=== PATIENT | male | born 1980 | race Two or more races ===

== ENCOUNTER 2025-02-21 20:27 | Emergency (ER) | payer BC ==
[2025-02-21] MEDS: Lactated Ringers 1,000 ML IV ONE (22:51)
[2025-02-21] MEDS: Ketorolac 30 MG/ML SDV IVPUSH ONE (22:52)
[2025-02-21 22:57] LABS: BASOPHILS ABSOLUTE AUTO 0.04 K/uL (0.00-0.20); BASOPHILS PERCENT AUTO 0.5 % (0.0-1.0); EOSINOPHILS ABSOLUTE AUTO 0.02 K/uL (0.00-0.45); EOSINOPHILS PERCENT AUTO 0.3 % (0.0-6.0); IMMATURE GRAN ABSOLUTE AUTO 0.02 K/uL (0.00-0.05); IMMATURE GRAN PERCENT AUTO 0.3 % (0.0-0.4); LYMPHOCYTES ABSOLUTE AUTO 2.13 K/uL (1.00-4.80); LYMPHOCYTES PERCENT AUTO 28.5 % (24.0-44.0); MEAN PLATELET VOLUME 9.4 fL (9.4-12.4); MONOCYTES ABSOLUTE AUTO 0.60 K/uL (0.00-0.80); MONOCYTES PERCENT AUTO 8.0 % (0.0-8.0); NEUTROPHILS ABSOLUTE AUTO 4.67 K/uL (1.80-7.70); NEUTROPHILS PERCENT AUTO 62.4 % (41.0-71.0); NRBC ABSOLUTE 0.00 K/uL (0.00-0.02); NRBC PERCENT 0.0 /100WBC (0.0-0.2); PLATELET COUNT,PLT 259 K/uL (150-400); RED BLOOD CELL COUNT 5.10 M/uL (4.52-5.90); WHITE BLOOD CELL COUNT,WBC 7.48 K/uL (3.9-11.3)
[2025-02-21 23:21] LABS: BLOOD UREA NITROGEN,BUN 13.0 mg/dL (7.0-18.0); CARBON DIOXIDE,CO2 26.4 mmol/L (21.0-32.0); CHLORIDE,CL 105.0 mmol/L (98-107); CREATININE 1.1 mg/dL (0.8-1.3); EST CRCL DRUG DOSING (CG) 84.64 mL/min; GLUCOSE RANDOM 116.0 mg/dL (74-106); POTASSIUM,K 4.2 mmol/L (3.5-5.1); SODIUM,NA 139.0 mmol/L (136-148)
[2025-02-21 23:28] LABS: ESTIMATED GFR 86.0 mL/min (>60)
== END 2025-02-22 00:46 | disposition home or self-care (01) ==
LOC: MW.ED 20:27
DX: G43.909 Migraine, unspecified, not intractable, without status migrainosus (principal); I10 Essential (primary) hypertension
CPT/HCPCS: 36415; 70450; 80048; 85025; 87428; 96361; 96374; 96375; 99284; J1885; J2765; J7120